=== PATIENT | female | born 1990 | race Caucasian/White ===

== ENCOUNTER 2024-01-05 16:54 | Inpatient (IN) ==
[2024-01-05] MEDS: LACTATED RINGERS 1,000 ML IV ONE (17:54)
[2024-01-05] MEDS: ONDANSETRON 4 MG/2 ML VIAL IV ONE (17:54)
[2024-01-05 18:11] LABS: Basophils # (Auto) 0.04 K/mcL (0.00-0.30); Basophils % (Auto) 0.3 % (0.0-2.0); Eosinophils # (Auto) 0.16 K/mcL (0.00-0.70); Eosinophils % (Auto) 1.3 % (0.0-7.0); Hematocrit 44.3 % (34.1-44.9); Hemoglobin 14.6 g/dL (11.2-15.7); Lymphocytes # (Auto) 2.22 K/mcL (1.50-4.80); Lymphocytes % (Auto) 17.5 % (15.5-49.0); Mean Cell Volume 93.1 fL (80.0-100.0); Mean Platelet Volume 10.3 fL (8.8-12.5); Monocytes # (Auto) 0.91 K/mcL (0.10-0.90); Monocytes % (Auto) 7.2 % (1.0-12.0); Neutrophils % (Auto) 73.5 % (38.0-78.0); Platelet Count 270 K/mcL (140-440); RBC 4.76 M/mcL (3.59-5.38); Red Cell Distribution Width 13.1 % (11.5-14.5); WBC 12.7 K/mcL (4.5-11.0)
[2024-01-05 18:19] LABS: Appearance,Urine Clear (Clear); Bilirubin,Urine Negative (Negative); Color,Urine Yellow; Culture Indicated,Urine No; Glucose,Urine (UA) Negative (Negative); Ketones,Urine Negative (Negative); Leukocyte Esterase,Urine Negative /uL (Negative); Nitrate,Urine Negative (Negative); PH,Urine 5.5 (5.0-9.0); Protein,Urine Negative (Negative); Specific Gravity,Urine 1.025 (1.000-1.035); Urine Blood Negative ery/mcL (Negative); Urine RBC 0 /hpf (0-3); Urine Squamous Epithelial Cell 10 /hpf (0-4); Urine WBC 0 /hpf (0-4); Urobilinogen,Urine Normal
[2024-01-05 18:28] LABS: ALT/SGPT 106 U/L (<40); AST/SGOT 255 U/L (<32); Albumin 4.8 gm/dL (3.2-5.2); Albumin/Globulin Ratio 1.6 (1.0-2.3); Alkaline Phosphatase 102 U/L (39-117); Bilirubin,Total 0.7 mg/dL (0.1-1.0); Blood Urea Nitrogen 10 mg/dL (6-20); Calcium 9.6 mg/dL (8.6-10.4); Carbon Dioxide 22 mmol/L (22-30); Chloride 105 mmol/L (96-108); Glomerular Filtration Rate 113; Glucose 103 mg/dL (70-105)
[2024-01-05] MEDS: oxyCODONE IR 5 MG TABLET PO ONE (18:55)
[2024-01-05 19:03] LABS: HCG,Serum Negative
[2024-01-05] MEDS: HYDROmorphone 0.5 MG/0.5 ML SYRINGE IV ONE (20:23)
[2024-01-05] MEDS: fentaNYL 100 MCG/2 ML VIAL IV ONE (23:50)
[2024-01-06] MEDS: metroNIDAZOLE 500 MG/100 ML BAG IV ONE (06:56)
[2024-01-06] MEDS: cefTRIAXone 2 GM in DEXTROSE 5% IN WATER 50 ML IV ONE (06:56)
[2024-01-06 07:14] LABS: Basophils # (Auto) 0.03 K/mcL (0.00-0.30); Basophils % (Auto) 0.5 % (0.0-2.0); Eosinophils # (Auto) 0.12 K/mcL (0.00-0.70); Eosinophils % (Auto) 1.9 % (0.0-7.0); Hematocrit 38.4 % (34.1-44.9); Hemoglobin 12.7 g/dL (11.2-15.7); Lymphocytes # (Auto) 1.52 K/mcL (1.50-4.80); Lymphocytes % (Auto) 23.8 % (15.5-49.0); Mean Cell Volume 92.8 fL (80.0-100.0); Mean Corpuscular HGB Conc 33.1 g/dL (31.0-36.0); Mean Platelet Volume 9.9 fL (8.8-12.5); Monocytes # (Auto) 0.48 K/mcL (0.10-0.90); Monocytes % (Auto) 7.5 % (1.0-12.0); Neutrophils % (Auto) 66.1 % (38.0-78.0); Platelet Count 226 K/mcL (140-440); RBC 4.14 M/mcL (3.59-5.38); Red Cell Distribution Width 13.1 % (11.5-14.5); WBC 6.4 K/mcL (4.5-11.0)
[2024-01-06] MEDS: LORazepam 2 MG/ML VIAL IV ONE (07:20)
[2024-01-06 07:22] LABS: ALT/SGPT 241 U/L (<40); AST/SGOT 277 U/L (<32); Albumin/Globulin Ratio 1.7 (1.0-2.3); Alkaline Phosphatase 79 U/L (39-117); Bilirubin,Total 0.6 mg/dL (0.1-1.0); Blood Urea Nitrogen 9 mg/dL (6-20); Calcium 8.9 mg/dL (8.6-10.4); Carbon Dioxide 23 mmol/L (22-30); Chloride 107 mmol/L (96-108); Globulin 2.3 gm/dL (2.2-3.7); Glomerular Filtration Rate 118; Glucose 94 mg/dL (70-105)
[2024-01-06] MEDS ORDERED: BISACODYL 5 MG TABLET PO SCH (10:00)
[2024-01-06] MEDS: HYDROmorphone 0.5 MG/0.5 ML SYRINGE IV PRN (10:37)
[2024-01-06] MEDS: DEXTROSE 5%-LR 1,000 ML IV SCH (11:21)
[2024-01-06] MEDS: ONDANSETRON 4 MG/2 ML VIAL IV PRN (11:28)
[2024-01-07 06:29] LABS: Hematocrit 36.4 % (34.1-44.9); Hemoglobin 12.2 g/dL (11.2-15.7); Mean Cell Volume 93.6 fL (80.0-100.0); Mean Corpuscular HGB Conc 33.5 g/dL (31.0-36.0); Mean Platelet Volume 10.5 fL (8.8-12.5); Platelet Count 225 K/mcL (140-440); RBC 3.89 M/mcL (3.59-5.38); WBC 6.4 K/mcL (4.5-11.0)
[2024-01-07 06:50] LABS: C-Reactive Protein 1.03 mg/dL (0.03-0.80)
[2024-01-07 06:54] LABS: ALT/SGPT 156 U/L (<40); AST/SGOT 95 U/L (<32); Albumin 3.9 gm/dL (3.2-5.2); Albumin/Globulin Ratio 1.8 (1.0-2.3); Alkaline Phosphatase 64 U/L (39-117); Bilirubin,Total 0.4 mg/dL (0.1-1.0); Blood Urea Nitrogen 5 mg/dL (6-20); Carbon Dioxide 23 mmol/L (22-30); Chloride 107 mmol/L (96-108); Globulin 2.2 gm/dL (2.2-3.7); Glomerular Filtration Rate 126; Glucose 110 mg/dL (70-105)
[2024-01-07] MEDS: OMEPRAZOLE 20 MG CAPSULE PO SCH (07:42)
[2024-01-07] MEDS: SERTRALINE 50 MG TABLET PO SCH (08:59)
== END 2024-01-07 15:40 | disposition home or self-care (01) | DRG 440 ==
LOC: ED 16:54 → MEDSUR 01-06 10:55
PROVIDERS: ADMIT Surgery Surgical Critical Care; ATTEND Surgery Surgical Critical Care